=== PATIENT | female | born 1995 | race Caucasian/White ===

== ENCOUNTER 2020-06-13 20:55 | Inpatient (IN) | payer MEDICAID ==
[~2020-06-13] VITALS: Ht 162.6 cm; Wt 65.0 kg
[2020-06-13 22:36] LABS: Basophils # (auto) 0.1 10 ^3/uL (0-0.2); Basophils % (auto) 0.6 % (0.0-2.0); Eosinophils # (auto) 0.1 10 ^3/uL (0-0.8); Eosinophils % (auto) 0.9 % (0.0-7.0); Hematocrit 42.5 % (36.0-46.0); Lymphocytes # (auto) 0.7 10 ^3/uL (0.4-5.4); Lymphocytes % (auto) 4.4 % (10.0-50.0); Monocytes # (auto) 0.6 10 ^3/uL (0-1.3); Neutrophils # (auto) 13.2 10 ^3/uL (1.6-8.6); Neutrophils % (auto) 90.1 % (37.0-80.0); Platelet Count (auto) 372 10^3/uL (140-450); Red Blood Cells 4.67 10^6/uL (4.0-5.20); Red Cell Distribution Width 13.7 % (11.8-14.3); White Blood Cell 14.7 10^3/uL (4.4-10.8)
[2020-06-13 22:54] LABS: Potassium 3.9 mmol/L (3.5-5.1)
[2020-06-13 22:58] LABS: Albumin 4.4 g/dL (3.4-5.0); BUN/Creatinine Ratio 17.8; Calcium 8.9 mg/dL (8.5-10.1); Magnesium 2.1 mg/dL (1.6-2.6)
[2020-06-13 23:14] LABS: Bilirubin, Total 0.4 mg/dL (0.2-1.0); Total Protein 7.8 g/dL (6.4-8.2)
[2020-06-14 04:14] LABS: Urine Bacteria FEW /hpf (None Seen); Urine Blood Negative /uL (Negative); Urine Mucus FEW (None Seen); Urine Specific Gravity 1.032 (1.001-1.035); Urine WBC 1 /hpf (0 - 5)
[2020-06-14] MEDS ORDERED: ONDANSETRON HCL 4 MG/2 ML VIAL IV ONE (04:30)
[2020-06-14] MEDS ORDERED: SODIUM CHLORIDE 0.9% 1,000 ML IV ONE (04:30)
[2020-06-14] MEDS ORDERED: IOHEXOL 300 MG/ML 100ML BOTTLE IJ ONE (05:24)
[2020-06-14] MEDS ORDERED: MORPHINE SULFATE 4 MG/ML SYR/VIAL IV ONE (06:30)
[2020-06-14] MEDS ORDERED: PIPERACILLIN-TAZOB 3.375GM 100 ML IV ONE (06:45)
[2020-06-14] MEDS ORDERED: SODIUM CHLORIDE 0.9% 2,050 ML IV ONE (06:45)
[2020-06-14] MEDS ORDERED: VANCOMYCIN 1GM/250ML 250 ML IV ONE (06:45)
[2020-06-14] MEDS ORDERED: ALBUTEROL SULF 2.5 MG/0.5ML(0.5%) NEB SOLN NEB ONE (08:00)
[2020-06-14] MEDS ORDERED: NITROGLYCERIN 0.4 MG SL TAB SL PRN (11:30)
[2020-06-14] MEDS ORDERED: MORPHINE SULF INJ 2 MG/ML SYRINGE 1ML IV PRN (11:30)
[2020-06-14] MEDS: SODIUM CHLORIDE 0.9% 1,000 ML IV SCH ×2 (14:20→19:30)
[2020-06-14] MEDS: metroNIDAZOLE 500MG/100ML 100 ML IV SCH ×2 (14:21→21:16)
--- NOTE | 2020-06-14 15:54 | NUR ---
RECEIVED REPORT FROM SAM ROMERO IN ER.
--- NOTE | 2020-06-14 16:15 | NUR ---
Telemetry admit from ER ISAAC DANIEL admitted to Telemetry unit after SBAR received. Patient oriented to Nora Sotelo, primary RN, unit, room, bed, and unit policies regarding patient care and visiting hours. Patient now on continuous telemetry monitoring, tele box # [id number] and telemetry reading on arrival to unit is SINUS RHYTHM AT 87BPM. Patient placed on bedside oxygen, weighed by bedscale and encouraged to call if they need something. All questions and concerns addressed, patient verbalized understanding. Note:PT IS AWAKE AND ALERT, NO SIGNS OF DISTRESS AT THIS TIME, WILL CONTINUE TO MONITOR.
[2020-06-14 17:02] VITALS: BP 114/68
--- NOTE | 2020-06-14 17:20 | NUR ---
STOOL SAMPLE SENT TO LAB FOR C-DIFF.
[2020-06-14] MEDS: ONDANSETRON HCL 4 MG/2 ML VIAL IV PRN (18:48)
[2020-06-14] MEDS ORDERED: MONT10TA34 PO (19:25)
[2020-06-14] MEDS ORDERED: CETI10CH PO (19:25)
--- NOTE | 2020-06-14 19:50 | NUR ---
Opening Shift Note Assumed care of patient. Patient is awake and AOx4. Patient in no apparent signs/symptoms of distress/SOB. Fall and safety precautions in place. Instructed on POC and to call for assist PRN, patient verbalized understanding and in agreement. Call light within reach and able to use. Will continue to monitor for changes Q1hr and PRN.
[2020-06-14] MEDS: MORPHINE SULF INJ 2 MG/ML SYRINGE 1ML IV PRN (20:43)
[2020-06-14 21:50] VITALS: BP 118/80
[2020-06-15] VITALS (7 sets, daily range): BP systolic 108–118; BP diastolic 59–77
[2020-06-15] MEDS: SODIUM CHLORIDE 0.9% 1,000 ML IV SCH ×3 (00:38→19:30)
--- NOTE | 2020-06-15 04:00 | NUR ---
STOOL SAMPLE STOOL SAMPLE OBTAINED FOR CULTURE AND SENT TO LAB. DIET TECH CONFIRMED THAT IT WAS RECEIVED. WILL CONTINUE TO MONITOR.
[2020-06-15] MEDS: ONDANSETRON HCL 4 MG/2 ML VIAL IV PRN ×3 (04:06→17:45)
[2020-06-15] MEDS: metroNIDAZOLE 500MG/100ML 100 ML IV SCH ×3 (05:30→21:01)
[2020-06-15 06:29] LABS: Basophils # (auto) 0.1 10 ^3/uL (0-0.2); Basophils % (auto) 0.9 % (0.0-2.0); Eosinophils # (auto) 0.2 10 ^3/uL (0-0.8); Hemoglobin 12.3 g/dL (12.2-16.2); Lymphocytes # (auto) 0.9 10 ^3/uL (0.4-5.4); Lymphocytes % (auto) 12.7 % (10.0-50.0); Mean Corpuscular Hemoglobin 31.1 pg (28.0-32.0); Mean Corpuscular Hgb Conc. 34.2 g/dL (32.0-36.0); Mean Corpuscular Volume 90.9 fL (80.0-100.0); Monocytes # (auto) 0.5 10 ^3/uL (0-1.3); Neutrophils # (auto) 5.2 10 ^3/uL (1.6-8.6); Neutrophils % (auto) 75.4 % (37.0-80.0); Platelet Count (auto) 280 10^3/uL (140-450); Red Blood Cells 3.96 10^6/uL (4.0-5.20); Red Cell Distribution Width 13.4 % (11.8-14.3); White Blood Cell 6.9 10^3/uL (4.4-10.8)
[2020-06-15 06:51] LABS: BUN/Creatinine Ratio 4.8; Calcium 7.7 mg/dL (8.5-10.1); Magnesium 2.2 mg/dL (1.6-2.6); Potassium 3.2 mmol/L (3.5-5.1)
[2020-06-15] MEDS: ACETAMINOPHEN 650 mg PER 20 mL UD PO PRN (08:09)
[2020-06-15] MEDS ORDERED: ALBU108A5 IN (08:23)
[2020-06-15] MEDS ORDERED: PANTOPRAZOLE 40 MG/10 ML VIAL INJ IV SCH (10:00)
[2020-06-15] MEDS ORDERED: levoFLOXacin 500MG 100 ML IV ONE (10:00)
[2020-06-15] MEDS ORDERED: ALBUTEROL SULF HFA 90MCG INH 200DOSE IN SCH (11:15)
--- NOTE | 2020-06-15 11:20 | NUR ---
Dr Cortez bedside with patient discussing plan of care. Orders received and carried out
[2020-06-15] MEDS ORDERED: ALBUTEROL SULF 2.5 MG/0.5ML(0.5%) NEB SOLN ONE (11:30)
[2020-06-15] MEDS ORDERED: ALBUTEROL SULF 2.5 MG/0.5ML(0.5%) NEB SOLN NEB PRN ×2 (11:30)
[2020-06-15] MEDS: POTASSIUM CHL 20MEQ/100ML 100 ML IV SCH ×2 (11:54→13:05)
[2020-06-15] MEDS: PANTOPRAZOLE 40 MG TAB PO SCH (12:00)
[2020-06-15] MEDS: MORPHINE SULF INJ 2 MG/ML SYRINGE 1ML IV PRN ×2 (12:06→19:58)
[2020-06-15] MEDS ORDERED: methylPREDNISolone SOD SUCC 125 MG/2 ML VL IV ONE (13:00)
[2020-06-15] MEDS: ALBUTEROL SULF 2.5 MG/0.5ML(0.5%) NEB SOLN NEB SCH ×3 (14:00→22:50)
[2020-06-15] MEDS ORDERED: GOLYTELY 4L KIT PO ONE (15:00)
[2020-06-15] MEDS: SUCRALFATE 1 GM/10 ML ORAL SUSP PO SCH ×2 (17:40→21:02)
--- NOTE | 2020-06-15 19:45 | NUR ---
Opening Shift Note Assumed care of patient, awake and alert. No S/S of distress/SOB. Fall and safety precautions in place. Call light within reach and able to use. Instructed on POC and to call for assist PRN, patient verbalized understanding and in agreement. Will continue to monitor for changes Q1hr and PRN.
[2020-06-15] MEDS: MONTELUKAST SODIUM 10 MG TAB PO SCH (21:02)
[2020-06-15] MEDS: methylPREDNISolone SOD SUCC 125 MG/2 ML VL IV SCH (21:02)
[2020-06-16] MEDS: SODIUM CHLORIDE 0.9% 1,000 ML IV SCH ×3 (00:30→19:30)
[2020-06-16] MEDS: ONDANSETRON HCL 4 MG/2 ML VIAL IV PRN (03:56)
[2020-06-16] MEDS: MORPHINE SULF INJ 2 MG/ML SYRINGE 1ML IV PRN ×2 (03:57→18:22)
[2020-06-16 05:00] VITALS: BP 125/73
[2020-06-16] MEDS: metroNIDAZOLE 500MG/100ML 100 ML IV SCH (05:13)
[2020-06-16] MEDS: methylPREDNISolone SOD SUCC 125 MG/2 ML VL IV SCH ×3 (05:14→21:17)
[2020-06-16] MEDS: ACETAMINOPHEN 650 mg PER 20 mL UD PO PRN (05:27)
--- NOTE | 2020-06-16 05:40 | NUR ---
IV insertion IV access obtained, via clean sterile technique by inserting 22 gauge catheter at right forearm on first attempt. IV secured properly. No trauma to site. Patient tolerated well.
[2020-06-16] MEDS ORDERED: GOLYTELY 4L KIT PO ONE (06:00)
[2020-06-16] MEDS ORDERED: MAGNESIUM CITRATE SOLUTION 300 ML BTL PO ONE (06:00)
[2020-06-16] MEDS: SUCRALFATE 1 GM/10 ML ORAL SUSP PO SCH ×4 (06:05→21:17)
[2020-06-16] MEDS: ALBUTEROL SULF 2.5 MG/0.5ML(0.5%) NEB SOLN NEB SCH ×5 (06:11→22:09)
[2020-06-16 06:40] LABS: Basophils # (auto) 0 10 ^3/uL (0-0.2); Basophils % (auto) 0.1 % (0.0-2.0); Eosinophils # (auto) 0 10 ^3/uL (0-0.8); Hematocrit 40.3 % (36.0-46.0); Hemoglobin 13.6 g/dL (12.2-16.2); Lymphocytes # (auto) 0.6 10 ^3/uL (0.4-5.4); Lymphocytes % (auto) 4.1 % (10.0-50.0); Mean Corpuscular Hemoglobin 30.6 pg (28.0-32.0); Mean Corpuscular Hgb Conc. 33.9 g/dL (32.0-36.0); Mean Corpuscular Volume 90.4 fL (80.0-100.0); Monocytes # (auto) 0.5 10 ^3/uL (0-1.3); Monocytes % (auto) 3.4 % (0.0-12.0); Neutrophils # (auto) 13.2 10 ^3/uL (1.6-8.6); Neutrophils % (auto) 92.4 % (37.0-80.0); Platelet Count (auto) 360 10^3/uL (140-450); Red Blood Cells 4.46 10^6/uL (4.0-5.20); Red Cell Distribution Width 13.5 % (11.8-14.3); White Blood Cell 14.3 10^3/uL (4.4-10.8)
[2020-06-16 06:57] LABS: INR 1.13 (0.9-1.15); Partial Thromboplastin Time 29.3 sec (23.0-31.2)
[2020-06-16 07:04] LABS: Potassium 3.4 mmol/L (3.5-5.1)
[2020-06-16 07:12] LABS: BUN/Creatinine Ratio 6.2; Bilirubin, Total 0.4 mg/dL (0.2-1.0); Calcium 8.4 mg/dL (8.5-10.1); Magnesium 2.2 mg/dL (1.6-2.6); Total Protein 6.8 g/dL (6.4-8.2)
--- NOTE | 2020-06-16 07:49 | NUR ---
PROCEDURE SCHEDULE PER DR Abhijit BONILLA PATIENT TO HAVE EGD DONE TF THE 1330 CASE TODAY PATIENT ADDED TO THE SCHEDULE
[2020-06-16 08:00] VITALS: BP 115/68
[2020-06-16 09:00] VITALS: BP 115/68
[2020-06-16] MEDS: PANTOPRAZOLE 40 MG TAB PO SCH (09:11)
--- NOTE | 2020-06-16 09:45 | NUR ---
Dr Cortez called regarding patient and update provided
[2020-06-16] MEDS ORDERED: SODIUM CHLORIDE LOCK 10 ML ONE (12:24)
[2020-06-16] MEDS ORDERED: LIDOCAINE VISCOUS 2% 15ML UD ONE (12:24)
[2020-06-16 13:00] VITALS: BP 140/71
--- NOTE | 2020-06-16 13:15 | NUR ---
Orders received and carried out from Dr Cortez
--- NOTE | 2020-06-16 13:20 | NUR ---
Patient off floor for procedure
[2020-06-16] MEDS: fentaNYL CITRATE 100 MCG/2 ML VL ONE ×5 (13:45→14:09)
[2020-06-16] MEDS: MIDAZOLAM HCL 5 MG/ML-1ML VIAL ONE ×6 (13:45→14:09)
[2020-06-16] MEDS: diphenhdrAMINE HCL 50 MG/1 ML VL ONE ×2 (13:45→13:47)
[2020-06-16] MEDS ORDERED: diphenhdrAMINE HCL 50 MG/1 ML VL ONE (13:54)
--- NOTE | 2020-06-16 14:54 | NUR ---
PT IN A PROCEDURE AT THIS TIME, MED NEB NOT GIVEN. WILL CONTINUE TO MONITOR PT.
--- NOTE | 2020-06-16 15:05 | NUR ---
Patient returned to room from procedure. VS 117/72, 71, 16, 97%, 98.4. No complaints of pain or discomfort at this time. Will continue to monitor.
[2020-06-16] MEDS: POTASSIUM CHL 20MEQ/100ML 100 ML IV SCH ×2 (15:10→16:57)
[2020-06-16 16:50] VITALS: BP 114/74
[2020-06-16] MEDS: MONTELUKAST SODIUM 10 MG TAB PO SCH (21:17)
[2020-06-16 21:46] VITALS: BP 108/67
[2020-06-17] MEDS: SODIUM CHLORIDE 0.9% 1,000 ML IV SCH ×2 (03:22→09:59)
[2020-06-17 05:04] VITALS: BP 112/69
[2020-06-17 05:49] LABS: Basophils # (auto) 0 10 ^3/uL (0-0.2); Basophils % (auto) 0.1 % (0.0-2.0); Eosinophils # (auto) 0 10 ^3/uL (0-0.8); Hematocrit 37.2 % (36.0-46.0); Hemoglobin 12.1 g/dL (12.2-16.2); Lymphocytes # (auto) 0.4 10 ^3/uL (0.4-5.4); Lymphocytes % (auto) 3.3 % (10.0-50.0); Mean Corpuscular Hemoglobin 29.8 pg (28.0-32.0); Mean Corpuscular Hgb Conc. 32.7 g/dL (32.0-36.0); Mean Corpuscular Volume 91.2 fL (80.0-100.0); Monocytes # (auto) 0.4 10 ^3/uL (0-1.3); Monocytes % (auto) 3.5 % (0.0-12.0); Neutrophils # (auto) 10.3 10 ^3/uL (1.6-8.6); Neutrophils % (auto) 93.1 % (37.0-80.0); Platelet Count (auto) 299 10^3/uL (140-450); Red Blood Cells 4.08 10^6/uL (4.0-5.20); Red Cell Distribution Width 13.7 % (11.8-14.3); White Blood Cell 11.1 10^3/uL (4.4-10.8)
[2020-06-17] MEDS: ALBUTEROL SULF 2.5 MG/0.5ML(0.5%) NEB SOLN NEB SCH ×4 (05:50→18:37)
[2020-06-17] MEDS: methylPREDNISolone SOD SUCC 125 MG/2 ML VL IV SCH ×2 (05:59→13:59)
[2020-06-17] MEDS: SUCRALFATE 1 GM/10 ML ORAL SUSP PO SCH ×3 (06:00→16:55)
[2020-06-17] MEDS: ACETAMINOPHEN 650 mg PER 20 mL UD PO PRN (06:00)
[2020-06-17 06:02] LABS: BUN/Creatinine Ratio 17.8; Calcium 8.1 mg/dL (8.5-10.1); Magnesium 2.5 mg/dL (1.6-2.6)
[2020-06-17 08:00] VITALS: BP 127/78
[2020-06-17 09:00] VITALS: BP 127/78
[2020-06-17] MEDS: PANTOPRAZOLE 40 MG TAB PO SCH (09:37)
--- NOTE | 2020-06-17 11:00 | NUR ---
Provided Dr Cortez with update on patient. No orders at this time
[2020-06-17 13:00] VITALS: BP 121/70
--- NOTE | 2020-06-17 15:15 | NUR ---
Dr Cortez bedside with patient.
[2020-06-17 16:44] VITALS: BP 121/70
[2020-06-17 17:00] VITALS: BP 136/69
--- NOTE | 2020-06-17 19:11 | NUR ---
Discharge instructions given as ordered. Encouraged to follow up with PMD at [facility], MD Sj Chou. Patient also instructed to follow up in 2-4 weeks with GI, contact information provided. All questions and concerns addressed. Patient verbalized understanding. Medication reconciliation form completed and copy given to patient. Home medications held in Pharmacy returned to patient, and no vaccinations givens, patient declined. Patient received prescription script for new medications. IV removed with catheter intact and pressure dressing applied. Telemetry unit returned to ICU. Patient taken to vehicle via wheelchair with all personal belongings, accompanied by staff member. No distress noted at time of departure.
== END 2020-06-17 19:11 | disposition home or self-care (01) | DRG 241 ==
LOC: ER 20:55 → TELE 20:56 → TELE-WESTW 06-14 16:00
PROVIDERS: ADMIT Internal Medicine; ATTEND Internal Medicine
PROC: 0DB88ZX Excision of Small Intestine, Via Natural or Artificial Opening Endoscopic, Diagnostic (ICD-10-PCS; 2020-06-16)
PROC: 0DBE8ZX Excision of Large Intestine, Via Natural or Artificial Opening Endoscopic, Diagnostic (ICD-10-PCS; 2020-06-16)
PROC: 0DB38ZX Excision of Lower Esophagus, Via Natural or Artificial Opening Endoscopic, Diagnostic (ICD-10-PCS; principal; 2020-06-16 13:30)
PROC: 0DB68ZX Excision of Stomach, Via Natural or Artificial Opening Endoscopic, Diagnostic (ICD-10-PCS; 2020-06-16 13:30)
DX: K29.70 Gastritis, unspecified, without bleeding (principal); R11.15 Cyclical vomiting syndrome unrelated to migraine; D72.829 Elevated white blood cell count, unspecified; F12.90 Cannabis use, unspecified, uncomplicated; K44.9 Diaphragmatic hernia without obstruction or gangrene; J40 Bronchitis, not specified as acute or chronic; K22.10 Ulcer of esophagus without bleeding; K29.80 Duodenitis without bleeding; J45.901 Unspecified asthma with (acute) exacerbation; K26.9 Duodenal ulcer, unspecified as acute or chronic, without hemorrhage or perforation; Z82.5 Family history of asthma and other chronic lower respiratory diseases; Z79.899 Other long term (current) drug therapy
CPT/HCPCS: 36415; 43239; 45380; 74177; 80048; 80053; 81001; 83605; 83735; 84702; 85025; 85610; 85730; 86850; 86900; 86901; 87040; 87045; 87427; 87493; 94640; C9113; G0378; J1956; J2250; J2405; J2543; J3480; J3490